=== PATIENT | male | born 1995 | race African-American/Black ===

== ENCOUNTER 2023-08-08 23:30 | Emergency (ER) | payer MEDICAID ==
[~2023-08-08] VITALS: Ht 177.8 cm; Wt 72.6 kg
[2023-08-08 23:44] VITALS: BP_SYST 135; PULSE 83; RESP 16; TEMP 98.3; O2SAT 96
[2023-08-09] MEDS: IBUPROFEN 600 MG TABLET PO ONE (00:40)
[2023-08-09] MEDS ORDERED: NAPR-1172 PO (01:37)
[2023-08-09 01:54] VITALS: BP_SYST 130; PULSE 86; RESP 16; TEMP 97.3; O2SAT 98
== END 2023-08-09 01:54 | disposition home or self-care (01) ==
LOC: SED 23:30
DX: S90.32XA Contusion of left foot, initial encounter (principal); W18.39XA Other fall on same level, initial encounter; Y93.89 Activity, other specified; Y92.89 Other specified places as the place of occurrence of the external cause; Y99.8 Other external cause status; Z79.899 Other long term (current) drug therapy
CPT/HCPCS: 99283